=== PATIENT | male | born 1965 | race American Indian/Alaskan Native ===

== ENCOUNTER 2017-03-10 05:32 | Emergency (ER) | payer BC ==
[2017-03-10 06:36] LABS: Alanine Aminotransferase 11 units/L (7-56); Albumin 3.9 g/dL (3.9-5); Albumin/Globulin Ratio 1.3 %; Alkaline Phosphatase 67 units/L (35-129); Anion Gap 17 mmol/L; Bilirubin,Total 0.6 mg/dL (0.1-1.2); Blood Urea Nitrogen 8 mg/dL (9-20); Calcium 8.7 mg/dL (8.4-10.2); Carbon Dioxide 25 mmol/L (22-30); Chloride 105.9 mmol/L (98-107); Glucose 104 mg/dL (75-100); Lipase 19 units/L (13-60); Potassium 3.9 mmol/L (3.6-5.0); Sodium 144 mmol/L (137-145); Total Protein 6.9 g/dL (6.3-8.2)
[2017-03-10 06:41] LABS: Basophils % (Auto) 0.4 % (0.0-1.8); Eosinophils % (Auto) 1.3 % (0.0-4.3); Hemoglobin 13.4 gm/dl (11.8-15.2); Mean Corpuscular HGB Conc 33 % (32-34); Mean Corpuscular Hemoglobin 30 pg (28-32); Mean Corpuscular Volume 92 fl (84-94); Platelet Count 212 K/mm3 (140-440); Red Blood Count 4.48 M/mm3 (3.65-5.03); Red Cell Distribution Width 13.2 % (13.2-15.2); White Blood Count 7.2 K/mm3 (4.5-11.0)
[2017-03-10 06:48] LABS: Bilirubin,Urine NEG (Negative); Blood,Urine NEG (Negative); Ketones,Urine NEG (Negative); Leukocyte Esterase,Urine NEG (Negative); Mucus,Urine FEW /HPF; Nitrite,Urine NEG (Negative); Urobilinogen,Urine < 2.0 mg/dL (<2.0)
[2017-03-10] MEDS ORDERED: TORADOL IM ONE (10:25)
--- NOTE | 2017-03-10 10:27 | Emergency Department Report ---
ED Abdominal Pain HPI - General Chief Complaint: Abdominal Pain Stated Complaint: ABD PAIN, LT SIDE OF BODY PAIN Time Seen by Provider: 03/10/17 10:05 Source: patient Mode of arrival: Ambulatory Limitations: No Limitations - History of Present Illness MD Complaint: flank pain -: Sudden Location: LLQ, L flank Migration to: no migration Severity: moderate Severity scale (0 -10): 6 Quality: sharp Consistency: intermittent, colicky Improves With: nothing Worsens With: nothing Associated Symptoms: denies: nausea, vomiting, diarrhea, fever, chills, constipation, dysuria, hematemesis, hematochezia, melena, hematuria, anorexia, syncope - Related Data Previous Rx's Medication Instructions Recorded Last Taken Type Ciprofloxacin HCl [Ciprofloxacin 500 mg PO BID #20 tablet 03/10/17 Unknown Rx TAB] Diclofenac Potassium 50 mg PO BID #20 tablet 03/10/17 Unknown Rx metroNIDAZOLE [Flagyl TAB] 500 mg PO ONCE #20 tablet 03/10/17 Unknown Rx Allergies Allergy/AdvReac Type Severity Reaction Status Date / Time No Known Allergies Allergy Unverified 03/10/17 05:54 ED Review of Systems ROS: Stated complaint: ABD PAIN, LT SIDE OF BODY PAIN Other details as noted in HPI Constitutional: denies: chills, fever Eyes: denies: eye pain, eye discharge, vision change ENT: denies: ear pain, throat pain Respiratory: denies: cough, shortness of breath, wheezing Cardiovascular: denies: chest pain, palpitations Endocrine: no symptoms reported Gastrointestinal: abdominal pain. denies: nausea, diarrhea Genitourinary: denies: urgency, dysuria Musculoskeletal: denies: back pain, joint swelling, arthralgia Skin: denies: rash, lesions Neurological: denies: headache, weakness, paresthesias Psychiatric: denies: anxiety, depression Hematological/Lymphatic: denies: easy bleeding, easy bruising ED Past Medical Hx - Past Medical History Hx Hypertension: Yes - Surgical History Hx Appendectomy: Yes - Social History Smoking Status: Current Some Day Smoker Substance Use Type: None - Medications Home Medications: Home Medications Medication Instructions Recorded Confirmed Last Taken Type Ciprofloxacin HCl [Ciprofloxacin 500 mg PO BID #20 tablet 03/10/17 Unknown Rx TAB] Diclofenac Potassium 50 mg PO BID #20 tablet 03/10/17 Unknown Rx metroNIDAZOLE [Flagyl TAB] 500 mg PO ONCE #20 tablet 03/10/17 Unknown Rx ED Physical Exam - General Limitations: No Limitations General appearance: alert, in no apparent distress - Head Head exam: Present: atraumatic, normocephalic - Eye Eye exam: Present: normal appearance - ENT ENT exam: Present: mucous membranes moist - Neck Neck exam: Present: normal inspection - Respiratory Respiratory exam: Present: normal lung sounds bilaterally. Absent: respiratory distress - Cardiovascular Cardiovascular Exam: Present: regular rate, normal rhythm. Absent: systolic murmur, diastolic murmur, rubs, gallop - GI/Abdominal GI/Abdominal exam: Present: soft, tenderness, normal bowel sounds. Absent: distended, guarding, rebound, rigid - Rectal Rectal exam: Present: deferred - Extremities Exam Extremities exam: Present: normal inspection - Back Exam Back exam: Present: normal inspection - Neurological Exam Neurological exam: Present: alert, oriented X3 - Psychiatric Psychiatric exam: Present: normal affect, normal mood - Skin Skin exam: Present: warm, dry, intact, normal color. Absent: rash ED Course Vital Signs 03/10/17 03/10/17 05:47 11:07 Temperature 98.4 F Pulse Rate 77 Respiratory 18 18 Rate Blood Pressure 155/108 Blood Pressure 155/108 [Left] O2 Sat by Pulse 99 100 Oximetry ED Medical Decision Making - Lab Data Result diagrams: 03/10/17 05:59 03/10/17 05:59 - Medical Decision Making Patient with findings on CT of acute diverticulitis, able to tolerate po here and re examiantion shows mild tenderness but no guarding or rebound, will give first dose of abx here and discharge with outpt treatment, Critical care attestation.: If time is entered above; I have spent that time in minutes in the direct care of this critically ill patient, excluding procedure time. ED Disposition Clinical Impression: Diverticulitis, Abdominal pain Disposition: DISCHARGED TO HOME OR SELFCARE Is pt being admited?: No Does the pt Need Aspirin: No Condition: Good Instructions: Abdominal Pain (ED), Diverticulitis (ED) Prescriptions: Ciprofloxacin HCl [Ciprofloxacin TAB] 500 mg PO BID #20 tablet Diclofenac Potassium 50 mg PO BID #20 tablet metroNIDAZOLE [Flagyl TAB] 500 mg PO ONCE #20 tablet Referrals: PRIMARY CARE, [Primary Care Provider] - 3-5 Days Time of Disposition: 12:34
--- NOTE | 2017-03-10 11:10 | Cat Scan Report ---
CT OF THE ABDOMEN AND PELVIS WITHOUT CONTRAST HISTORY: Left abdominal pain, left flank pain. TECHNIQUE: Helical CT without contrast. Sagittal and coronal reformatted images. FINDINGS: There is mild circumferential thickening and inflammatory changes surrounding the descending colon. There are multiple diverticula in this area which probably represents acute diverticulitis. There is no evidence for abscess or free air. The remaining bowel loops are grossly normal although no oral contrast was administered. The liver, pancreas, spleen, kidneys and adrenal glands are unremarkable. Cholecystectomy changes are noted. The bladder and distal ureters are unremarkable. Previous ventral wall hernia repair changes are noted. No recurrent hernia is identified. Heart size is normal. The visualized lung bases are clear. No suspicious bony lesion. IMPRESSION: Acute diverticulitis of the descending colon.
[2017-03-10] MEDS ORDERED: FLAGYL PO ONE (12:30)
[2017-03-10] MEDS ORDERED: LEVAQUIN PO ONE (12:31)
[2017-03-10 12:44] VITALS: BP 148/98
== END 2017-03-10 12:44 | disposition home or self-care (01) ==
LOC: ED 05:32
DX: K57.92 Diverticulitis of intestine, part unspecified, without perforation or abscess without bleeding (principal); I10 Essential (primary) hypertension; F17.200 Nicotine dependence, unspecified, uncomplicated
CPT/HCPCS: 36415; 74176; 80053; 81001; 83690; 85025; 96372; 99284; J1885

== ENCOUNTER 2017-12-06 22:22 | Emergency (ER) | payer BC ==
--- NOTE | 2017-12-06 22:55 | XRay Report ---
FINAL REPORT PROCEDURE: XR CHEST ROUTINE 2V TECHNIQUE: PA and lateral chest radiographs were obtained. CPT 34571 HISTORY: cough COMPARISON: No prior studies are available for comparison. FINDINGS: Heart: Normal. Mediastinum/Vessels: Normal. Lungs/Pleural space: Normal. Bony thorax: No acute osseous abnormality. Other: IMPRESSION: Normal examination.
--- NOTE | 2017-12-07 01:10 | Emergency Department Report ---
- General Chief Complaint: Upper Respiratory Infection Stated Complaint: COUGH Time Seen by Provider: 12/07/17 01:03 Source: patient Mode of arrival: Ambulatory Limitations: No Limitations - History of Present Illness Initial Comments: 52-year-old male past medical history smoker, hypertension presents with complaint of 2 days of minimally productive cough. Subjective fever, runny nose , sore throat, body aches. Patient denies chest pain palpitations shortness of breath at rest. Denies nausea or vomiting. Patient is awake alert and oriented 3 fully lucid speaking in full sentences no audible wheezing or stridor or visible trismus. Patient states that his is sick with similar symptoms over the last few days. MD Complaint: cough, sore throat, rhinorrhea Onset/Timin -: days(s) Severity: moderate Improves With: OTC cold medicine Worsens With: nothing Context: sick contacts Associated Symptoms: denies other symptoms - Related Data Previous Rx's Medication Instructions Recorded Last Taken Type Ciprofloxacin HCl [Ciprofloxacin 500 mg PO BID #20 tablet 03/10/17 Unknown Rx TAB] Diclofenac Potassium 50 mg PO BID #20 tablet 03/10/17 Unknown Rx metroNIDAZOLE [Flagyl TAB] 500 mg PO ONCE #20 tablet 03/10/17 Unknown Rx Acetaminophen [Acetaminophen TAB] 500 mg PO Q6HR PRN #30 tablet 12/07/17 Unknown Rx Albuterol Sulfate [Ventolin Hfa] 1 puff IH Q4H PRN #1 hfa.aer.ad 12/07/17 Unknown Rx Azithromycin [Zithromax Z-SUSHANT] 250 mg PO QDAY #1 pack 12/07/17 Unknown Rx Benzonatate [Tessalon Perles] 100 mg PO Q8HR PRN #30 capsule 12/07/17 Unknown Rx Dextromethorphan Hb/Doxylamine 15 ml PO Q6H PRN #1 liquid 12/07/17 Unknown Rx [Safetussin Pm Liquid] Allergies Allergy/AdvReac Type Severity Reaction Status Date / Time No Known Allergies Allergy Verified 12/06/17 22:29 ED Review of Systems ROS: Stated complaint: COUGH Other details as noted in HPI Constitutional: denies: chills, fever Eyes: denies: eye pain, eye discharge, vision change ENT: denies: ear pain, throat pain Respiratory: cough. denies: shortness of breath, wheezing Cardiovascular: denies: chest pain, palpitations Endocrine: no symptoms reported Gastrointestinal: denies: abdominal pain, nausea, diarrhea Genitourinary: denies: urgency, dysuria Musculoskeletal: denies: back pain, joint swelling, arthralgia Skin: denies: rash, lesions Neurological: denies: headache, weakness, paresthesias Psychiatric: denies: anxiety, depression Hematological/Lymphatic: denies: easy bleeding, easy bruising ED Past Medical Hx - Past Medical History Previous Medical History?: Yes Hx Hypertension: Yes - Surgical History Hx Appendectomy: Yes - Social History Smoking Status: Current Some Day Smoker Substance Use Type: Alcohol - Medications Home Medications: Home Medications Medication Instructions Recorded Confirmed Last Taken Type Ciprofloxacin HCl [Ciprofloxacin 500 mg PO BID #20 tablet 03/10/17 Unknown Rx TAB] Diclofenac Potassium 50 mg PO BID #20 tablet 03/10/17 Unknown Rx metroNIDAZOLE [Flagyl TAB] 500 mg PO ONCE #20 tablet 03/10/17 Unknown Rx Acetaminophen [Acetaminophen TAB] 500 mg PO Q6HR PRN #30 tablet 12/07/17 Unknown Rx Albuterol Sulfate [Ventolin Hfa] 1 puff IH Q4H PRN #1 hfa.aer.ad 12/07/17 Unknown Rx Azithromycin [Zithromax Z-SUSHANT] 250 mg PO QDAY #1 pack 12/07/17 Unknown Rx Benzonatate [Tessalon Perles] 100 mg PO Q8HR PRN #30 capsule 12/07/17 Unknown Rx Dextromethorphan Hb/Doxylamine 15 ml PO Q6H PRN #1 liquid 12/07/17 Unknown Rx [Safetussin Pm Liquid] ED Physical Exam - General Limitations: No Limitations General appearance: alert, in no apparent distress - Head Head exam: Present: atraumatic, normocephalic - Eye Eye exam: Present: normal appearance, PERRL, EOMI - ENT ENT exam: Present: mucous membranes moist - Expanded ENT Exam Expanded Throat exam: Positive: tonsillar erythema (slight erythema but no exudates bilaterally, no [employer]) - Neck Neck exam: Present: normal inspection - Respiratory Respiratory exam: Present: normal lung sounds bilaterally. Absent: respiratory distress - Cardiovascular Cardiovascular Exam: Present: regular rate, normal rhythm. Absent: systolic murmur, diastolic murmur, rubs, gallop - GI/Abdominal GI/Abdominal exam: Present: soft, normal bowel sounds - Rectal Rectal exam: Present: deferred - Extremities Exam Extremities exam: Present: normal inspection - Back Exam Back exam: Present: normal inspection - Neurological Exam Neurological exam: Present: alert, oriented X3, CN II-XII intact, normal gait - Psychiatric Psychiatric exam: Present: normal affect, normal mood - Skin Skin exam: Present: warm, dry, intact, normal color. Absent: rash ED Course Vital Signs 12/06/17 12/07/17 22:29 01:30 Temperature 98.5 F Pulse Rate 102 H Respiratory 16 18 Rate Blood Pressure 161/92 O2 Sat by Pulse 97 Oximetry ED Medical Decision Making - Medical Decision Making A/P: URI, bronchitis and somatic hypertension 1-As patient is a smoker will cover empirically with azithromycin Z-Sushant course 2-strep negative, influenza negative, chest x-ray unremarkable 3-asymptomatic hypertension, patient denies dizziness headache and nausea chest pain palpitations shortness of breath at rest. Advised patient to follow up with primary care doctor 4- albuterol inhaler, safetussin for HTN pts, cepacol drops, tessalon perles Critical care attestation.: If time is entered above; I have spent that time in minutes in the direct care of this critically ill patient, excluding procedure time. ED Disposition Clinical Impression: Asymptomatic hypertension Upper respiratory tract infection Qualifiers: URI type: unspecified viral URI Qualified Code(s): J06.9 - Acute upper respiratory infection, unspecified; B97.89 - Other viral agents as the cause of diseases classified elsewhere; B97.89 - Other viral agents as the cause of diseases classified elsewhere Disposition: DC-01 TO HOME OR SELFCARE Is pt being admited?: No Does the pt Need Aspirin: No Condition: Stable Instructions: Hypertension (ED), Viral Syndrome (ED), Cold Symptoms (ED), Upper Respiratory Infection (ED) Prescriptions: Acetaminophen [Acetaminophen TAB] 500 mg PO Q6HR PRN #30 tablet PRN Reason: Fever Albuterol Sulfate [Ventolin Hfa] 1 puff IH Q4H PRN #1 hfa.aer.ad PRN Reason: Cough Azithromycin [Zithromax Z-SUSHANT] 250 mg PO QDAY #1 pack Benzonatate [Tessalon Perles] 100 mg PO Q8HR PRN #30 capsule PRN Reason: Cough Dextromethorphan Hb/Doxylamine [Safetussin Pm Liquid] 15 ml PO Q6H PRN #1 liquid PRN Reason: Cough Referrals: [facility] [Outside] - 3-5 Days [facility] [Outside] - 3-5 Days RADHA DODGE MD [Staff Physician] - 3-5 Days Forms: Accompanied Note, Work/School Release Form(ED) Time of Disposition: 02:14
[2017-12-07] MEDS ORDERED: TYLENOL PO ONE (01:22)
[2017-12-07] MEDS ORDERED: DUONEB *Not for PRN Use IH ONE (01:22)
[2017-12-07 02:15] VITALS: BP 111/78
[2017-12-07] MEDS ORDERED: MOTRIN PO ONE (02:23)
== END 2017-12-07 02:36 | disposition home or self-care (01) ==
LOC: ED 22:22
DX: J06.9 Acute upper respiratory infection, unspecified (principal); B97.89 Other viral agents as the cause of diseases classified elsewhere; I10 Essential (primary) hypertension; F17.200 Nicotine dependence, unspecified, uncomplicated
CPT/HCPCS: 71046; 87116; 87400; 87430; 94640

== ENCOUNTER 2019-10-20 12:46 | Emergency (ER) | payer BC ==
--- NOTE | 2019-10-20 14:09 | Event Note ---
ED Screening Note Date of service: 10/20/19 Time: 14:10 ED Screening Note: 54 y/o male comes in for a 2 week hiatory of left side pain. This initial assessment/diagnostic orders/clinical plan/treatment(s) is/are subject to change based on patients health status, clinical progression and re-assessment by fellow clinical providers in the ED. Further treatment and workup at subsequent clinical providers discretion. Patient/guardian urged not to elope from the ED as their condition may be serious if not clinically assessed and managed. Initial orders include:
--- NOTE | 2019-10-20 17:55 | XRay Report ---
LUMBAR SPINE, AP AND LATERAL VIEWS 10/20/2019 INDICATION / CLINICAL INFORMATION: lumbago. COMPARISON: None available. FINDINGS: There are mild hypertrophic degenerative changes from L3 to S1. Slight narrowing of the L5-S1 disc interspace is noted. Bony alignment is normal. SI joints appear normal Sclerotic changes are seen in both proximal femurs. Signer Name: Dashawn Chinchilla MD Signed: 10/20/2019 5:51 PM Workstation Name: [id number]
--- NOTE | 2019-10-20 18:10 | Emergency Department Report ---
ED Back Pain/Injury HPI - General Chief Complaint: Back Pain/Injury Stated Complaint: LFT SIDE PAIN Time Seen by Provider: 10/20/19 14:04 Source: patient Limitations: No Limitations - History of Present Illness MD Complaint: back pain -: Gradual Similar Symptoms Previously: Yes Severity: mild Improves With: none - Related Data Previous Rx's Medication Instructions Recorded Last Taken Type Ciprofloxacin HCl [Ciprofloxacin 500 mg PO BID #20 tablet 03/10/17 Unknown Rx TAB] Diclofenac Potassium 50 mg PO BID #20 tablet 03/10/17 Unknown Rx metroNIDAZOLE [Flagyl TAB] 500 mg PO ONCE #20 tablet 03/10/17 Unknown Rx Acetaminophen [Acetaminophen TAB] 500 mg PO Q6HR PRN #30 tablet 12/07/17 Unknown Rx Albuterol Sulfate [Ventolin Hfa] 1 puff IH Q4H PRN #1 hfa.aer.ad 12/07/17 Unknown Rx Azithromycin [Zithromax Z-SUSHANT] 250 mg PO QDAY #1 pack 12/07/17 Unknown Rx Benzonatate [Tessalon Perles] 100 mg PO Q8HR PRN #30 capsule 12/07/17 Unknown Rx Dextromethorphan Hb/Doxylamine 15 ml PO Q6H PRN #1 liquid 12/07/17 Unknown Rx [Safetussin Pm Liquid] Ketorolac [Toradol] 10 mg PO Q6H PRN #10 tablet 10/20/19 Unknown Rx methOCARBAMOL [Robaxin TAB] 500 mg PO Q6H #20 tablet 10/20/19 Unknown Rx Allergies Allergy/AdvReac Type Severity Reaction Status Date / Time No Known Allergies Allergy Verified 12/06/17 22:29 ED Review of Systems ROS: Stated complaint: LFT SIDE PAIN Other details as noted in HPI Comment: All other systems reviewed and negative ED Past Medical Hx - Past Medical History Previous Medical History?: Yes Hx Hypertension: Yes - Surgical History Past Surgical History?: Yes Hx Appendectomy: Yes - Social History Smoking Status: Current Some Day Smoker Substance Use Type: Alcohol - Medications Home Medications: Home Medications Medication Instructions Recorded Confirmed Last Taken Type Ciprofloxacin HCl [Ciprofloxacin 500 mg PO BID #20 tablet 03/10/17 Unknown Rx TAB] Diclofenac Potassium 50 mg PO BID #20 tablet 03/10/17 Unknown Rx metroNIDAZOLE [Flagyl TAB] 500 mg PO ONCE #20 tablet 03/10/17 Unknown Rx Acetaminophen [Acetaminophen TAB] 500 mg PO Q6HR PRN #30 tablet 12/07/17 Unknown Rx Albuterol Sulfate [Ventolin Hfa] 1 puff IH Q4H PRN #1 hfa.aer.ad 12/07/17 Unknown Rx Azithromycin [Zithromax Z-SUSHANT] 250 mg PO QDAY #1 pack 12/07/17 Unknown Rx Benzonatate [Tessalon Perles] 100 mg PO Q8HR PRN #30 capsule 12/07/17 Unknown Rx Dextromethorphan Hb/Doxylamine 15 ml PO Q6H PRN #1 liquid 12/07/17 Unknown Rx [Safetussin Pm Liquid] Ketorolac [Toradol] 10 mg PO Q6H PRN #10 tablet 10/20/19 Unknown Rx methOCARBAMOL [Robaxin TAB] 500 mg PO Q6H #20 tablet 10/20/19 Unknown Rx ED Physical Exam - General Limitations: No Limitations General appearance: alert, in no apparent distress - Head Head exam: Present: atraumatic, normocephalic - Eye Eye exam: Present: normal appearance, PERRL, EOMI Pupils: Present: normal accommodation - ENT ENT exam: Present: mucous membranes moist - Neck Neck exam: Present: normal inspection - Respiratory Respiratory exam: Present: normal lung sounds bilaterally. Absent: respiratory distress - Cardiovascular Cardiovascular Exam: Present: regular rate, normal rhythm. Absent: systolic murmur, diastolic murmur, rubs, gallop - GI/Abdominal GI/Abdominal exam: Present: soft, normal bowel sounds - Rectal Rectal exam: Present: deferred - Extremities Exam Extremities exam: Present: normal inspection - Back Exam Back exam: Present: normal inspection, tenderness, muscle spasm, paraspinal tenderness, vertebral tenderness, other. Absent: CVA tenderness (R), CVA tenderness (L) - Neurological Exam Neurological exam: Present: alert, oriented X3, CN II-XII intact, normal gait - Psychiatric Psychiatric exam: Present: normal affect, normal mood - Skin Skin exam: Present: warm, dry, intact, normal color. Absent: rash ED Course Vital Signs 10/20/19 12:57 Temperature 98.6 F Pulse Rate 72 Respiratory 18 Rate Blood Pressure 166/109 O2 Sat by Pulse 97 Oximetry ED Medical Decision Making - Radiology Data Radiology results: report reviewed [facility] [address] [place] [address] XRay Report Signed Patient: JOEL MELO MR#: [id number] : 1965 Acct:[id number] Age/Sex: 54 / M ADM Date: 10/20/19 Loc: ED Attending Dr: Ordering Physician: LEIA CALDERON Date of Service: 10/20/19 Procedure(s): XR spine lumbosacral 2-3V Accession Number(s): [id number] cc: LEIA CALDERON Fluoro Time In Minutes: LUMBAR SPINE, AP AND LATERAL VIEWS 10/20/2019 INDICATION / CLINICAL INFORMATION: lumbago. COMPARISON: None available. FINDINGS: There are mild hypertrophic degenerative changes from L3 to S1. Slight narrowing of the L5-S1 disc interspace is noted. Bony alignment is normal. SI joints appear normal Sclerotic changes are seen in both proximal femurs. Signer Name: Dashawn Chinchilla MD Signed: 10/20/2019 5:51 PM Workstation Name: [id number] Transcribed By: MADI Dictated By: Dashawn Chinchilla MD Electronically Authenticated By: Dashawn Chinchilla MD Signed Date/Time: 10/20/191750 DD/ 48 - Medical Decision Making I estimate there is LOW risk for ABDOMINAL AORTIC ANEURYSM, CAUDA EQUINA SYNDROME, EPIDURAL MASS LESION, SPINAL STENOSIS, OR HERNIATED DISK CAUSING SEVERE STENOSIS, thus I consider the discharge disposition reasonable. We have discussed the diagnosis and risks, and we agree with discharging home to follow- up with their primary doctor. We also discussed returning to the Emergency Department immediately if new or worsening symptoms occur. We have discussed the symptoms which are most concerning (e.g., saddle anesthesia, urinary or bowel incontinence or retention, changing or worsening pain) that necessitate immediate return. Critical care attestation.: If time is entered above; I have spent that time in minutes in the direct care of this critically ill patient, excluding procedure time. ED Disposition Clinical Impression: Lumbago Disposition: DC-01 TO HOME OR SELFCARE Is pt being admited?: No Does the pt Need Aspirin: No Condition: Stable Instructions: Acute Low Back Pain (ED), Low Back Strain (ED), Lumbar Radiculopathy (ED), Back Pain (ED) Prescriptions: methOCARBAMOL [Robaxin TAB] 500 mg PO Q6H #20 tablet Ketorolac [Toradol] 10 mg PO Q6H PRN #10 tablet PRN Reason: Pain Referrals: JULIO YAP MD [Staff Physician] - 3-5 Days
[2019-10-20 18:25] VITALS: BP 186/105
== END 2019-10-20 18:26 | disposition home or self-care (01) ==
LOC: ED 12:46
DX: M54.5 Low back pain (principal); I10 Essential (primary) hypertension; F17.200 Nicotine dependence, unspecified, uncomplicated; F10.10 Alcohol abuse, uncomplicated; Z90.49 Acquired absence of other specified parts of digestive tract; Z79.899 Other long term (current) drug therapy
CPT/HCPCS: 72100